=== PATIENT | female | born 1930 | race Caucasian/White ===

== ENCOUNTER 2018-05-03 20:00 | Emergency (ER) | payer SELFPAY ==
[~2018-05-03] VITALS: Ht 152.4 cm; Wt 59.0 kg
--- NOTE | 2018-05-03 20:00 | NUR ---
PT TO ER LOBBY VIA W/C IN STABLE CONDITION.
[2018-05-03 21:39] VITALS: BP 188/112
--- NOTE | 2018-05-03 22:37 | NUR ---
LWBS AT THIS TIME.
== END 2018-05-03 22:38 | disposition left against medical advice (07) ==
LOC: MED 20:00
DX: R53.1 Weakness (principal); Z53.21 Procedure and treatment not carried out due to patient leaving prior to being seen by health care provider